=== PATIENT | female | born 1980 | race American Indian/Alaskan Native ===

== ENCOUNTER → 2019-08-16 | Outpatient (CLI) | payer OTHER ==
[~2019-08-16] MED LIST: IBUP800 PO; Percocet 5-3251 EACH PO; Zofran Odt8 MG PO
[2019-08-16 15:45] LABS: Thyroid Stimulating Hormone 0.093 uIU/mL (0.360-4.800)
[2019-08-16 17:13] LABS: Free Thyroxine 1.42 ng/dL (0.70-1.60)
== END | disposition home or self-care (01) ==
LOC: LAB EV 07:32 → LAB SHORT 07:32
PROVIDERS: Physician Assistant Medical
DX: E03.9 Hypothyroidism, unspecified (principal)
CPT/HCPCS: 84439; 84443; 84481

== ENCOUNTER → 2019-11-07 | Outpatient (CLI) | payer OTHER ==
[2019-11-07 11:35] LABS: BASOPHILS ABSOLUTE AUTO 0.09 K/mm3 (0.00-0.23); BASOPHILS PERCENT AUTO 1 % (0-2); EOSINOPHILS ABSOLUTE AUTO 0.09 K/mm3 (0.00-0.68); EOSINOPHILS PERCENT AUTO 1 % (0-6); Hematocrit 42.6 % (33.0-51.0); Hemoglobin 13.7 g/dL (11.5-16.0); IMMATURE GRAN ABSOLUTE AUTO 0.05 K/mm3 (0.00-0.10); IMMATURE GRAN PERCENT AUTO 0 % (0-1); LYMPHOCYTES ABSOLUTE AUTO 1.75 K/mm3 (0.84-5.20); LYMPHOCYTES PERCENT AUTO 13 % (21-46); MONOCYTES ABSOLUTE AUTO 0.61 K/mm3 (0.16-1.47); MONOCYTES PERCENT AUTO 4 % (4-13); Mean Corpuscular HGB 25.6 pg (26.0-34.0); Mean Corpuscular HGB Conc 32.2 g/dL (31.5-36.5); Mean Corpuscular Volume 80 fL (80-100); Mean Platelet Volume 9.7 fL (9.1-12.4); NEUTROPHILS ABSOLUTE AUTO 11.36 K/mm3 (1.96-9.15); NEUTROPHILS PERCENT AUTO 82 % (41-73); Platelet Count 483 K/mm3 (150-400); RDW Standard Deviation 47.6 fL (35.1-46.3); Red Blood Cell Count 5.36 M/mm3 (3.80-5.20); White Blood Cell Count 13.95 K/mm3 (4.00-11.30)
[2019-11-07 11:43] LABS: Alanine Aminotransfer (ALT/SGP 22 U/L (12-78); Albumin, Blood 4.3 g/dL (3.4-5.0); Albumin/Globulin Ratio 0.9 (0.8-1.8); Alk Phos 58 U/L (40-126); Anion Gap 14 mmol/L (6-16); Aspartate Aminotrans (AST/SGOT 13 U/L (12-37); Bilirubin, Total 0.5 mg/dL (0.1-1.0); Blood Urea Nitrogen 6 mg/dL (8-24); Bun/Creatinine Ratio 9.1 (12.0-20.0); CO2, Blood 21 mmol/L (21-32); Chloride, Blood 100 mmol/L (98-108); Creatinine, Blood 0.66 mg/dL (0.40-1.00); Globulin, Blood 4.6 g/dL (2.2-4.0); Glomerular Filtration Rate >60 (60-); Glucose, Blood 114 mg/dL (70-99); Potassium, Blood 3.6 mmol/L (3.5-5.5); Sodium, Blood 135 mmol/L (136-145); Total Protein, Blood 8.9 g/dL (6.4-8.2)
== END | disposition home or self-care (01) ==
LOC: LAB EV 11:26 → LAB SHORT 11:26
PROVIDERS: Physician Assistant Medical
DX: R11.2 Nausea with vomiting, unspecified (principal)
CPT/HCPCS: 80053; 85025

== ENCOUNTER → 2019-11-10 | Outpatient (CLI) | payer OTHER ==
[2019-11-10 15:29] LABS: Bilirubin, Urine Neg (Neg); Blood, Urine Neg (Neg); Glucose Qualitative, Urine Neg (Neg); Ketones, Urine Neg (Neg); Leukocyte Esterase, Urine Neg (Neg); Nitrite, Urine Neg (Neg); Protein, Urine Neg (Neg); Urobilinogen, Urine NORM (Normal); pH, Urine 6.5 (5.0-8.0)
[2019-11-10 15:39] LABS: Appearance, Urine Clear (Clear); Color, Urine Yellow (P-Yellow)
== END ==
LOC: LAB SHORT 13:57 → LAB 13:57
PROVIDERS: Advanced Practice Midwife
DX: Z34.81 Encounter for supervision of other normal pregnancy, first trimester (principal)
CPT/HCPCS: 81003; 87086

== ENCOUNTER → 2019-12-13 | Outpatient (CLI) | payer OTHER ==
[2019-12-15 07:09] LABS: CHLAMYDIA TRACHOMATIS, NAA Negative (Negative); NEISSERIA GONORRHOEAE, NAA Negative (Negative)
== END ==
LOC: LAB SHORT 14:36 → LAB 14:36
PROVIDERS: Advanced Practice Midwife
DX: Z11.3 Encounter for screening for infections with a predominantly sexual mode of transmission (principal)
CPT/HCPCS: 87491; 87591

== ENCOUNTER → 2020-01-12 | Outpatient (CLI) | payer OTHER | END | disposition home or self-care (01) | LOC: LAB 12:02 → LAB SHORT 12:02 | DX: O09.521 Supervision of elderly multigravida, first trimester (principal) | CPT/HCPCS: 87086 ==

== ENCOUNTER → 2020-05-25 | Outpatient (CLI) | payer OTHER ==
[~2020-05-25] MED LIST changes: +FOLIVANE-OB CA1 EACH; +Synthroid200 MCG
== END | disposition home or self-care (01) ==
LOC: LAB SHORT 15:56 → LAB 15:56
DX: O09.91 Supervision of high risk pregnancy, unspecified, first trimester (principal); O09.521 Supervision of elderly multigravida, first trimester
CPT/HCPCS: 87081; 87150

== ENCOUNTER 2020-06-20 15:20 | Inpatient (IN) | payer OTHER ==
[~2020-06-20] VITALS: Ht 172.7 cm; Wt 104.3 kg
[~2020-06-20 15:20] MED LIST changes: -FOLIVANE-OB CA1 EACH; -Synthroid200 MCG
[2020-06-20] MEDS ORDERED: FOLIVANE-OB CA1 EACH (15:31)
[2020-06-20] MEDS ORDERED: Synthroid200 MCG (15:32)
[2020-06-20 15:49] LABS: BASOPHILS ABSOLUTE AUTO 0.07 K/mm3 (0.00-0.23); BASOPHILS PERCENT AUTO 1 % (0-2); EOSINOPHILS ABSOLUTE AUTO 0.12 K/mm3 (0.00-0.68); EOSINOPHILS PERCENT AUTO 1 % (0-6); Hematocrit 37.9 % (33.0-51.0); Hemoglobin 12.3 g/dL (11.5-16.0); IMMATURE GRAN ABSOLUTE AUTO 0.08 K/mm3 (0.00-0.10); IMMATURE GRAN PERCENT AUTO 1 % (0-1); LYMPHOCYTES ABSOLUTE AUTO 2.35 K/mm3 (0.84-5.20); LYMPHOCYTES PERCENT AUTO 19 % (21-46); MONOCYTES PERCENT AUTO 6 % (4-13); Mean Corpuscular HGB 26.3 pg (26.0-34.0); Mean Corpuscular HGB Conc 32.5 g/dL (31.5-36.5); Mean Corpuscular Volume 81 fL (80-100); Mean Platelet Volume 10.4 fL (9.1-12.4); NEUTROPHILS ABSOLUTE AUTO 9.02 K/mm3 (1.96-9.15); NEUTROPHILS PERCENT AUTO 73 % (41-73); Platelet Count 347 K/mm3 (150-400); RDW Coefficient Variation 14.5 % (11.7-14.2); RDW Standard Deviation 41.1 fL (35.1-46.3); Red Blood Cell Count 4.67 M/mm3 (3.80-5.20); White Blood Cell Count 12.34 K/mm3 (4.00-11.30)
[2020-06-20 16:33] LABS: Influenza A, PCR NEGATIVE (NEGATIVE); Influenza B, PCR NEGATIVE (NEGATIVE); Resp Syncytial Virus, PCR NEGATIVE (NEGATIVE); SARS-Cov-2 (COVID-19) PCR, MMC NEGATIVE (NEGATIVE)
--- NOTE | 2020-06-21 13:23 | NUR ---
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
--- NOTE | 2020-06-21 18:30 | NUR ---
dc home with baby, ambulate out
== END 2020-06-21 18:20 | disposition home or self-care (01) | DRG 768 ==
LOC: BC 15:20 → OBS 15:20 → BC 15:32
PROVIDERS: Internal Medicine Gastroenterology; ADMIT Advanced Practice Midwife
PROC: 10E0XZZ Delivery of Products of Conception, External Approach (ICD-10-PCS; principal; 2020-06-20)
PROC: 0DQR0ZZ Repair Anal Sphincter, Open Approach (ICD-10-PCS; 2020-06-20)
PROC: 10907ZC Drainage of Amniotic Fluid, Therapeutic from Products of Conception, Via Natural or Artificial Opening (ICD-10-PCS; 2020-06-20)
DX: O62.3 Precipitate labor (principal); Z37.0 Single live birth; O70.20 Third degree perineal laceration during delivery, unspecified; O99.324 Drug use complicating childbirth; Z20.822 Contact with and (suspected) exposure to COVID-19; O99.284 Endocrine, nutritional and metabolic diseases complicating childbirth; E03.9 Hypothyroidism, unspecified; Z3A.40 40 weeks gestation of pregnancy; O77.0 Labor and delivery complicated by meconium in amniotic fluid; O69.89X0 Labor and delivery complicated by other cord complications, not applicable or unspecified; F12.90 Cannabis use, unspecified, uncomplicated
CPT/HCPCS: 0241U; 85025; 86850; 86900; 86901; A9270; J2210; J2590

== ENCOUNTER → 2021-03-15 | Outpatient (CLI) | payer OTHER ==
[~2021-03-15] MED LIST changes: +FOLIVANE-OB CA1 EACH; +Synthroid200 MCG
== END | disposition home or self-care (01) ==
LOC: LAB SHORT 15:18 → LAB 15:18
DX: E03.9 Hypothyroidism, unspecified (principal)
CPT/HCPCS: 36415; 84443

== ENCOUNTER 2022-04-10 07:30 | Day surgery (SDC) | payer OTHER ==
[~2022-04-10] VITALS: Ht 172.7 cm; Wt 81.0 kg
[~2022-04-10 07:30] MED LIST changes: +ACET500 PO; +ALLER-TEC PO; +IBUP600 PO; +MULVITA PO; +PROG100 PO; +SERT25 PO; -Synthroid200 MCG; +Synthroid200 MCG PO
--- NOTE | 2022-04-10 09:03 | NUR ---
04/10/22 0903 Shelby [place] 20ML OF ROPIVACAINE 0.5% GIVEN TO PT BY SARAH BREWER. INJECTED INTO THE PORT SITES ON THE ABDOMEN.
--- NOTE | 2022-04-10 10:49 | NUR ---
PRE-OP NOTE Ambulatory in Day Surgery Surgical site prepped with 2% Chlorhexidine cloth wipe. History, Chart, Medications and Allergies reviewed before start of procedure.Lungs clear T/O to Auscultation. Patient confirms NPO status and agrees with scheduled surgery. Pre-Op teaching done. Pt verbalizes understanding.
--- NOTE | 2022-04-10 11:21 | NUR ---
PATIENT ARRIVED TO ROOM. INSISTS ON GOING TO THE BATHROOM, ASSISTED 2P TO BATHROOM. REPORTS BEING VERY NAUSEATED, MEDICATED WITH ZOFRAN ON DEPARTURE FROM PACU. X4 LAP SITES TO ABDOMEN APPEAR WNL, SCANT BLEEDING TO LOKESH PAD. VSS, ON RA. LUNGS CLEAR. ORIENTED TO ROOM & CALL LIGHT, IN REACH.
--- NOTE | 2022-04-10 12:25 | NUR ---
PATIENT UP TO BATHROOM SEVERAL TIMES NOW, 1P SBA. HAD 200 OF EMESIS. GAVE IV PHENEGRAN AND 500ML BOLUS, PER ORDERS IN DISCHARGE ORDER. RESTING IN BED AT THIS TIME. CALL LIGHT IN REACH.
--- NOTE | 2022-04-10 13:40 | NUR ---
PATIENT HAD MORE EMESIS AFTER INITIAL PHENGRAN. TELEPHONE ORDERS RECEIVED FROM DR HELTON FOR REGLAN 10MG AND TO START MAINTENENCE FLUIDS, AND OKAY FOR 6.25MG MORE PHENGRAN IF NEEDED. PATIENT REPORTS NAUSEA TO BE "GETTING BETTER" BUT "STILL FEEL SICK". WAS ABLE TO VOID SMALL AMOUNT AND RELEIVE SOME DISCOMFORT.
--- NOTE | 2022-04-10 19:09 | NUR ---
DISCHARGE PATIENT EATING, DRINKING, & VOIDING WELL. PVR OF 28. AMBULATING WITHIN THE ROOM & TO THE BATHROOM WELL AND FREQUENTLY. PAIN MANAGED WELL PER EMAR. LAP SITES APPEAR WNL, NO VAGINAL BLEEDING NOTED. DISCUSSED DISCHARGE INSTRUCTIONS WITH PATIENT, WAITING FOR RIDE TO ARRIVE. PLAN TO ESCORT OUT VIA W/C.
--- NOTE | 2022-04-10 19:20 | NUR ---
ESCORTED OUT VIA W/C
== END 2022-04-10 19:17 | disposition home or self-care (01) ==
LOC: ORSCMMR 07:30 → SURS 10:23 → ORSCMMR 19:17
PROVIDERS: Obstetrics & Gynecology
PROC: 0UT7FZZ Resection of Bilateral Fallopian Tubes, Via Natural or Artificial Opening With Percutaneous Endoscopic Assistance (ICD-10-PCS; principal; 2022-04-10 07:30)
PROC: 0UT2FZZ Resection of Bilateral Ovaries, Via Natural or Artificial Opening With Percutaneous Endoscopic Assistance (ICD-10-PCS; principal; 2022-04-10 07:30)
PROC: 0UT9FZZ Resection of Uterus, Via Natural or Artificial Opening With Percutaneous Endoscopic Assistance (ICD-10-PCS; principal; 2022-04-10 07:30)
PROC: 8E0W4CZ Robotic Assisted Procedure of Trunk Region, Percutaneous Endoscopic Approach (ICD-10-PCS; principal; 2022-04-10 07:30)
DX: N94.6 Dysmenorrhea, unspecified (principal); N92.0 Excessive and frequent menstruation with regular cycle; D25.9 Leiomyoma of uterus, unspecified; N80.00 Endometriosis of the uterus, unspecified; N80.103 Endometriosis of bilateral ovaries, unspecified depth; K66.0 Peritoneal adhesions (postprocedural) (postinfection); E03.9 Hypothyroidism, unspecified; E78.5 Hyperlipidemia, unspecified; F41.9 Anxiety disorder, unspecified; Z79.899 Other long term (current) drug therapy
CPT/HCPCS: 58571; S2900; 36415; 84702; 86850; 86900; 86901; 88307; A9270; J0690; J2405; J2550; J2765; J3010; J7030; J7040

== ENCOUNTER 2022-09-17 02:52 | Day surgery (SDC) | payer OTHER ==
[~2022-09-17 02:52] MED LIST changes: +IRON18 MG PO; +MOTRIN IB200 MG PO; +NORETHINDRONE AC5 MG PO
[2022-09-17 14:31] VITALS: BP 129/70
== END 2022-09-17 15:00 | disposition home or self-care (01) ==
LOC: ATC 02:52
DX: D50.9 Iron deficiency anemia, unspecified (principal); Z88.5 Allergy status to narcotic agent; E03.9 Hypothyroidism, unspecified; F33.1 Major depressive disorder, recurrent, moderate; E78.5 Hyperlipidemia, unspecified
CPT/HCPCS: 96365; J1756

== ENCOUNTER 2022-09-24 02:34 | Day surgery (SDC) | payer OTHER ==
[2022-09-24 14:22] VITALS: BP 120/74
== END 2022-09-24 15:22 | disposition home or self-care (01) ==
LOC: ATC 02:34
DX: D50.8 Other iron deficiency anemias (principal); E03.9 Hypothyroidism, unspecified; E78.5 Hyperlipidemia, unspecified; Z79.890 Hormone replacement therapy; Z79.899 Other long term (current) drug therapy
CPT/HCPCS: 96365; J1756

== ENCOUNTER 2022-10-01 01:52 | Day surgery (SDC) | payer OTHER ==
[2022-10-01 14:12] VITALS: BP 134/76
== END 2022-10-01 15:34 | disposition home or self-care (01) ==
LOC: ATC 01:52
DX: D50.9 Iron deficiency anemia, unspecified (principal); E03.9 Hypothyroidism, unspecified; Z88.5 Allergy status to narcotic agent; F33.1 Major depressive disorder, recurrent, moderate; E78.5 Hyperlipidemia, unspecified
CPT/HCPCS: 96365; J1756

== ENCOUNTER 2024-06-23 19:34 | Emergency (ER) | payer OTHER ==
[~2024-06-23] VITALS: Ht 170.2 cm; Wt 90.7 kg
[2024-06-23 19:47] VITALS: BP 153/91
[2024-06-23] MEDS ORDERED: ATORVASTATIN CA20 MG PO (20:26)
[2024-06-23] MEDS ORDERED: Diphth,Pertuss(Acell),Tet Vac 0.5 ML VIAL IM ONE (20:45)
== END 2024-06-23 22:05 | disposition home or self-care (01) ==
LOC: ER 19:34
DX: S61.211A Laceration without foreign body of left index finger without damage to nail, initial encounter (principal); E03.9 Hypothyroidism, unspecified; I10 Essential (primary) hypertension; W26.0XXA Contact with knife, initial encounter; Z79.899 Other long term (current) drug therapy; Z79.890 Hormone replacement therapy; Z91.018 Allergy to other foods; Z88.5 Allergy status to narcotic agent; Z88.8 Allergy status to other drugs, medicaments and biological substances
CPT/HCPCS: 73140; 90715